=== PATIENT | female | born 2000 | race Asian ===

== ENCOUNTER 2018-03-05 20:24 | Emergency (ER) | payer OTHER ==
[2018-03-05 20:32] VITALS: BP 98/72
[2018-03-05] MEDS ORDERED: PROPARACAINE 0.5% OPHTH DROPS 15 ML EACHEYE STA (21:20)
--- NOTE | 2018-03-05 21:42 | ED Physician Documentation ---
PD HPI OPHTHO - Stated complaint Stated Complaint: FB RT EYE - Chief complaint Chief Complaint: Heent - History obtained from History obtained from: Patient, Friend - History of Present Illness Timing - onset: Today Timing - duration: Hours (1) Timing - details: Abrupt onset Pain level max: 1 Pain level now: 1 Location: Right Quality / character: Aching Associated symptoms: Redness, Tearing Contributing factors: Wears contacts (thinks her contact is still in her eye) Recently seen: Not recently seen Review of Systems Eyes: denies: Loss of vision : denies: Now [facility] PD PAST MEDICAL HISTORY - Past Medical History Past Medical History: No - Past Surgical History Past Surgical History: No - Present Medications Home Medications: Ambulatory Orders Medication Instructions Recorded Confirmed No Known Home Medications [No 03/05/18 03/05/18 Known Home Medications] - Allergies Allergies/Adverse Reactions: Allergies Allergy/AdvReac Type Severity Reaction Status Date / Time No Known Drug Allergies Allergy Verified 03/05/18 20:32 - Social History Does the pt smoke?: No Smoking Status: Never smoker Does the pt drink ETOH?: No Does the pt have substance abuse?: No - Immunizations Immunizations are current?: Yes PD ED PE NORMAL - Vitals Vital signs reviewed: Yes - General General: Alert and oriented X 3 - HEENT HEENT: Other (R eye - Conjunctival injection and clear tearing. No visible foreign body. Slight scleral abrasions on fluorescein staining. Eyelids everted and eyes were irrigated. Again no contact is visible. She no longer has a sensation of a lost contact lens) - Derm Derm: Warm and dry - Neuro Neuro: Alert and oriented X 3 Results - Vitals Vitals: Oxygen O2 Source Room air PD MEDICAL DECISION MAKING - ED course Complexity details: considered differential, d/w patient ED course: No evidence of visible foreign body in the eye. No corneal abrasions. Eyelids everted. Patient counseled regarding signs and symptoms for which I believe and urgent re-evaluation would be necessary. Patient with good understanding of and agreement to plan and is comfortable going home at this time This document was made in part using voice recognition software. While efforts are made to proofread this document, sound alike and grammatical errors may occur. Departure - Departure Disposition: 01 Home, Self Care Clinical Impression: Foreign body in eye Qualifiers: Encounter type: initial encounter Laterality: right Qualified Code(s): T15.91XA - Foreign body on external eye, part unspecified, right eye, initial encounter Condition: Good Instructions: ED Eye Particle Conjunctiva FB Rslv Follow-Up: your,doctor as needed [Other] Comments: Return if you worsen. We are unable to see a retained contact lens tonight. Discharge Date/Time: 03/05/18 21:55
== END 2018-03-05 21:55 | disposition home or self-care (01) ==
LOC: ED 20:24
DX: T15.91XA Foreign body on external eye, part unspecified, right eye, initial encounter (principal); X58.XXXA Exposure to other specified factors, initial encounter
CPT/HCPCS: 99282; J3490